=== PATIENT | female | born 1950 | race Caucasian/White ===

== ENCOUNTER 2018-09-27 17:24 | Emergency (ER) | payer MEDICARE, OTHER ==
[2018-09-27] MEDS ORDERED: Sodium Chloride 0.9% 10 ML Syringe FLUSH PRN (17:55)
[2018-09-27] MEDS ORDERED: Ondansetron 4 MG/2 ML SDV IVPUSH ONE (17:56)
[2018-09-27] MEDS ORDERED: Metoprolol Tartrate 5 MG/5 ML SDV IVPUSH ONE (17:56)
[2018-09-27] MEDS: hydrOXYzine HCl 50 MG/ML SDV IM ONE (18:22)
[2018-09-27] MEDS: Ketorolac 30 MG/ML SDV IM ONE (18:22)
[2018-09-27] MEDS: Ondansetron 4 MG Tab.DIS ONE (18:23)
[2018-09-27 18:38] LABS: CHLORIDE,CL 96 mmol/L (98-107); SODIUM,NA 135 mmol/L (136-145)
[2018-09-27 18:44] LABS: ANION GAP 16.2 mmol/L (10-20)
--- NOTE | 2018-09-27 19:01 | EDM.PDOC ---
ED HPI GENERAL MEDICAL PROBLEM - General Chief Complaint: Headache Stated Complaint: EYE Time Seen by Provider: 09/27/18 17:30 Source of Information: Reports: Patient History Limitations: Reports: No Limitations - History of Present Illness INITIAL COMMENTS - FREE TEXT/NARRATIVE: Patient comes into the emergency department with complaints of hypertension, blood in the lower eye, and headache. Patient states she noticed her left eye had blood formation on the lower aspect around 3pm today. She did not remember injuring or harming that eye. At around the same time she started noticing that she began to have a headache. The headache has not increased in intensity however is maintaining the same. Shortly after she began to have a headache she noticed that her pressure was elevated when she checked it. Patient did stay at home for approximately 3 hours with a headache prior to coming in. Patient describes the headache as a throbbing sensation is having a history of headaches and states this does feel similar to all the other headaches that she has had in the past. She also states that her headaches normally are accompanied with high blood pressure. Her left eye she does not remember injuring herself or having any trauma she does state that she may have wiped her eye with her hand but does not remember injuring it. Patient denies having any changes in vision, blurriness, seeing floaters, having double vision, or blindness. Patient also states that the headache is self-limiting and isolated but does cause some nausea. Pt denies and chest pain, SOB, GI upset, or edema. Onset: Gradual Location: Reports: Head Quality: Reports: Ache, Throbbing Improves with: Reports: None Worsens with: Reports: None Associated Symptoms: Reports: No Other Symptoms Headache Pain Score (Numeric/FACES): 7 - Related Data Allergies Allergy/AdvReac Type Severity Reaction Status Date / Time cefuroxime axetil Allergy Cannot Verified 09/27/18 18:37 [From Ceftin] Remember codeine Allergy Nausea Verified 09/27/18 18:37 diazepam [From Valium] Allergy Cannot Verified 09/27/18 18:37 Remember hydrocodone Allergy Cannot Verified 09/27/18 18:37 Remember propoxyphene HCl Allergy Nausea Verified 09/27/18 18:37 [From Darvon] Sulfa (Sulfonamide Allergy Cannot Verified 09/27/18 18:37 Antibiotics) Remember Home Meds: Home Meds Losartan [Cozaar] 100 tab PO DAILY 03/17/15 [History] Metoprolol Tartrate 100 mg PO BID 10/09/14 [History] atorvaSTATin [Lipitor] 10 tab PO DAILY 10/09/14 [History] hydroCHLOROthiazide [Hydrochlorothiazide] 25 mg PO DAILY PRN 10/09/14 [History] ALPRAZolam [Xanax] 0.25 mg PO BID PRN 08/05/15 [History] Cyclobenzaprine [Flexeril] 10 mg PO TID PRN 08/05/15 [History] Dicyclomine HCl [Bentyl] 20 mg PO QID PRN 08/05/15 [History] Hydroxychloroquine Sulfate [Plaquenil] 200 mg PO BEDTIME 08/05/15 [History] Levothyroxine [Synthroid] 88 mcg PO ACBREAKFAST 08/05/15 [History] Lysine 500 mg PO BEDTIME 08/05/15 [History] Magnesium Oxide 400 mg PO BEDTIME 08/05/15 [History] Non-Formulary Medication [NF Drug] 1 each .ROUTE ASDIRECTED 08/05/15 [History] Non-Formulary Medication [NF Drug] 1 each TOP ASDIRECTED 08/05/15 [History] Polyethylene Glycol 3350 [MiraLAX] 1 packet PO DAILY PRN 08/05/15 [History] Warfarin [Coumadin] 5 mg PO ASDIRECTED 08/05/15 [History] Zolpidem [Ambien] 10 mg PO BEDTIME PRN 08/05/15 [History] traMADol [Ultram] 50 - 100 mg PO Q6H PRN 08/05/15 [History] Past Medical History HEENT History: Reports: Allergic Rhinitis, Cataract, Other (See Below) Other HEENT History: presbyopia. hypermetropia Cardiovascular History: Reports: Afib, Aneurysm, High Cholesterol, Hypertension , Other (See Below) Other Cardiovascular History: mitral valve disorders Gastrointestinal History: Reports: Diverticulosis, GERD, Irritable Bowel Syndrome Musculoskeletal History: Reports: Other (See Below) Other Musculoskeletal History: lumbar disc disease with radiculopathy Neurological History: Reports: Migraines Psychiatric History: Reports: Anxiety, Other (See Below) Other Psychiatric History: insomnia Endocrine/Metabolic History: Reports: Hypothyroidism Immunologic History: Reports: Other (See Below) Other Immunologic History: discoid lupus - Past Surgical History Female Surgical History: Reports: Hysterectomy, Other (See Below) Neurological Surgical History: Reports: Discectomy, Laminectomy Musculoskeletal Surgical History: Reports: Other (See Below) Social & Family History - Family History HEENT: Reports: Glaucoma Cardiac: Reports: Afib, Aneurysm, Heart Failure, High Cholesterol, Hypertension GI: Reports: Diverticulitis Musculoskeletal: Reports: Osteoporosis Neurological: Reports: Alzheimers Disease, Migraines Psychiatric: Reports: Anxiety Endocrine/Metabolic: Reports: Hypothyroidism, Osteoporosis Oncologic: Reports: Breast - Tobacco Use Smoking Status *Q: Never Smoker ED ROS GENERAL - Review of Systems Review Of Systems: See Below Constitutional: Reports: No Symptoms HEENT: Reports: No Symptoms Respiratory: Reports: No Symptoms Cardiovascular: Reports: No Symptoms Endocrine: Reports: No Symptoms GI/Abdominal: Reports: No Symptoms Musculoskeletal: Reports: No Symptoms Skin: Reports: No Symptoms Neurological: Reports: No Symptoms Psychiatric: Reports: No Symptoms ED EXAM, GENERAL - Physical Exam Exam: See Below Exam Limited By: No Limitations General Appearance: Alert, WD/WN, No Apparent Distress Eye Exam: Left Eye: Other (blood formation noted lower aspect of eye. sclera injury noted. ), Bilateral Eye: EOMI, PERRL Throat/Mouth: Normal Inspection Head: Atraumatic, Normocephalic Respiratory/Chest: No Respiratory Distress, Lungs Clear, Normal Breath Sounds, No Accessory Muscle Use, Chest Non-Tender Cardiovascular: Normal Peripheral Pulses, Regular Rate, Rhythm, No Edema, No Murmur Back Exam: Normal Inspection, Full Range of Motion Extremities: Normal Inspection, Normal Range of Motion, Non-Tender, No Pedal Edema, Normal Capillary Refill Neurological: Alert, Oriented, Normal Gait Psychiatric: Normal Affect, Normal Mood Skin Exam: Warm, Dry, Intact, Normal Color, No Rash EKG INTERPRETATION Rhythm: NSR Course - Vital Signs Last Recorded V/S: Last Vital Signs Temp 36.3 C 09/27/18 18:37 Pulse 67 09/27/18 19:06 Resp 16 09/27/18 19:09 BP 157/95 H 09/27/18 19:09 Pulse Ox 97 09/27/18 19:06 - Orders/Labs/Meds Orders: Active Orders 24 hr Category Date Time Status Cardiac Monitoring [RC] . DIRECTED Care 09/27/18 17:55 Active EKG Documentation Completion [RC] STAT Care 09/27/18 17:55 Active Peripheral IV Insertion Adult [OM.PC] Stat Oth 09/27/18 17:55 Ordered Labs: Laboratory Tests 09/27/18 09/27/18 09/27/18 Range/Units 18:00 18:00 18:00 WBC 7.2 (4.0-10.0) x10^3/uL RBC 4.64 (4.00-5.50) x10^6/uL Hgb 14.4 (12.0-16.0) g/dL Hct 41.4 (33.0-47.0) % MCV 89.2 (78.0-93.0) fL MCH 31.0 (26.0-32.0) pg MCHC 34.8 (32.0-36.0) g/dL RDW Coeff of Yasmeen 12.3 (10.0-15.0) % Plt Count 260 (130-400) x10^3/uL Neut % (Auto) 47.0 L (50.0-80.0) % Lymph % (Auto) 39.4 (25.0-50.0) % [place] % (Auto) 12.2 H (2.0-11.0) % Eos % (Auto) 1.0 (0.0-4.0) % Baso % (Auto) 0.4 (0.2-1.2) % PT 22.9 H (9.6-11.4) SEC INR 2.2 (2.0-3.5) Sodium 135 L (136-145) mmol/L Potassium 3.2 L (3.5-5.1) mmol/L Chloride 96 L (98-107) mmol/L Carbon Dioxide 26 (21-32) mmol/L Anion Gap 16.2 (10-20) mmol/L BUN 14 (7-18) mg/dL Creatinine 0.8 (0.55-1.02) mg/dL Est Cr Clr Drug Dosing TNP Estimated GFR (MDRD) > 60 Glucose 103 (74-106) mg/dL Calcium 9.4 (8.5-10.1) mg/dL Corrected Calcium 9.40 (8.5-10.1) mg/dL Total Bilirubin 0.4 (0.2-1.0) mg/dL AST 22 (15-37) U/L ALT 23 (14-59) U/L Alkaline Phosphatase 72 (46-116) U/L Creatine Kinase 76 (26-192) U/L Troponin I < 0.017 (<=0.056) ng/mL NT-Pro-B Natriuret Pep 178 H (<=125) pg/mL Total Protein 7.2 (6.4-8.2) g/dL Albumin 4.0 (3.4-5.0) g/dL Globulin 3.2 Albumin/Globulin Ratio 1.25 Meds: Medications Discontinued Medications Generic Name Dose Route Start Last Admin Trade Name Freq PRN Reason Stop Dose Admin Hydroxyzine HCl 50 mg 09/27/18 17:57 09/27/18 18:22 Vistaril IM 09/27/18 17:58 50 mg ONETIME ONE Administration Ketorolac Tromethamine 30 mg 09/27/18 18:01 09/27/18 18:22 Toradol IM 09/27/18 18:02 30 mg ONETIME ONE Administration Metoprolol Tartrate 5 mg 09/27/18 17:56 Lopressor IVPUSH 09/27/18 17:57 ONETIME ONE Ondansetron HCl 4 mg 09/27/18 17:56 Zofran IVPUSH 09/27/18 17:57 ONETIME ONE Ondansetron HCl Confirm 09/27/18 18:21 09/27/18 18:23 Zofran Odt Administered 09/27/18 18:22 4 mg Dose Administration 4 mg .ROUTE .STK-MED ONE Sodium Chloride 10 ml 09/27/18 17:55 Saline Flush FLUSH ASDIRECTED PRN Keep Vein Open Departure - Departure Time of Disposition: 19:05 Disposition: Home, Self-Care 01 Condition: Good Clinical Impression: Hypertension Qualifiers: Hypertension type: essential hypertension Qualified Code(s): I10 - Essential ( primary) hypertension - Discharge Information *PRESCRIPTION DRUG MONITORING PROGRAM REVIEWED*: Not Applicable *COPY OF PRESCRIPTION DRUG MONITORING REPORT IN PATIENT PETE: Not Applicable Instructions: Hypertension, [id number] Referrals: Jeane Gtz MD [Primary Care Provider] - Forms: ED Department Discharge Additional Instructions: 1. rest 2. increase your water intake 3. Follow up with your PCP 4. Take a extra 1/2 tab of metoprolol tonight 5. Call with any questions or concerns - My Orders Last 24 Hours: My Active Orders 09/27/18 17:55 Cardiac Monitoring [RC] . DIRECTED EKG Documentation Completion [RC] STAT Peripheral IV Insertion Adult [OM.PC] Stat - Assessment/Plan Last 24 Hours: My Active Orders 09/27/18 17:55 Cardiac Monitoring [RC] . DIRECTED EKG Documentation Completion [RC] STAT Peripheral IV Insertion Adult [OM.PC] Stat Assessment:: 1. no traumatic eye injury 2. headache 3. Hypertension Plan: 1. Multiple IV's were attempted with no success. 2. Oral agents given to reduce the headache and nausea. Relief noted within 20 mins of administration 3. Pt advised to take an extra 1/2 tab of her metoprolol tonight 4. Did offer to observe the pt for rebound headache in the hospital however she declined. 5. Education regarding increase water intake, follow up, activity and diet was provided. 6. Left eye did not continue to spreading of bleeding while in the area. No changes in vision acuity noted and no changes prior to discharge. 7. Pt also encouraged to return to the ER immediate if symptoms continue or return 8. All questions and concerns addressed prior to discharge
[2018-09-27 19:49] VITALS: BP 157/95
== END 2018-09-27 19:12 | disposition home or self-care (01) ==
LOC: VM.ED 17:24
DX: I10 Essential (primary) hypertension (principal); R51 Headache; R58 Hemorrhage, not elsewhere classified; I48.91 Unspecified atrial fibrillation; E03.9 Hypothyroidism, unspecified; F41.9 Anxiety disorder, unspecified; Z90.710 Acquired absence of both cervix and uterus; Z88.1 Allergy status to other antibiotic agents; Z88.2 Allergy status to sulfonamides; Z88.5 Allergy status to narcotic agent; Z79.899 Other long term (current) drug therapy; Z79.01 Long term (current) use of anticoagulants
CPT/HCPCS: 36415; 80053; 82550; 83880; 84484; 85025; 85610; 93005; 93010; 96372; 99284-25; 99284-GF; A9270-GY; J1885; J3410

== ENCOUNTER 2023-06-24 18:56 | Observation (INO) | payer MEDICARE, OTHER ==
[2023-06-24] MEDS ORDERED: Desmopressin 20 MCG in Sodium Chloride 0.9% 100 ML IV ONE (20:54)
[2023-06-24] MEDS ORDERED: Ondansetron 4 MG Tab.DIS PO PRN (21:13)
[2023-06-24] MEDS ORDERED: Sodium Chloride 0.9% 10 ML Syringe FLUSH PRN (21:13)
[2023-06-24] MEDS ORDERED: Ondansetron 4 MG/2 ML SDV IV PRN (21:13)
[2023-06-24] MEDS ORDERED: Acetaminophen 325 MG Tab PO PRN (21:13)
[2023-06-25 09:57] VITALS: BP 158/83; PULSE 77
== END 2023-06-25 09:55 | disposition home or self-care (01) ==
LOC: VM.ED 18:56 → VM.MS 20:59
PROVIDERS: ADMIT Physician Assistant Medical; ATTEND Physician Assistant Medical
DX: I62.00 Nontraumatic subdural hemorrhage, unspecified (principal); G20.A1 Parkinson's disease without dyskinesia, without mention of fluctuations; I48.91 Unspecified atrial fibrillation; E78.00 Pure hypercholesterolemia, unspecified; I10 Essential (primary) hypertension; K21.9 Gastro-esophageal reflux disease without esophagitis; F41.9 Anxiety disorder, unspecified; G43.909 Migraine, unspecified, not intractable, without status migrainosus; E03.9 Hypothyroidism, unspecified; I11.0 Hypertensive heart disease with heart failure; I50.9 Heart failure, unspecified; F17.299 Nicotine dependence, other tobacco product, with unspecified nicotine-induced disorders; Z98.890 Other specified postprocedural states; Z79.82 Long term (current) use of aspirin; Z79.01 Long term (current) use of anticoagulants; Z79.899 Other long term (current) drug therapy; Z79.890 Hormone replacement therapy; Z88.1 Allergy status to other antibiotic agents; Z88.2 Allergy status to sulfonamides; Z88.5 Allergy status to narcotic agent; Z88.8 Allergy status to other drugs, medicaments and biological substances
CPT/HCPCS: 70450; 72125; 96365; 99223; 99239; 99284-25; A9270-GY; G0378; J2597; J3490

== ENCOUNTER 2023-07-15 12:52 | Emergency (ER) | payer MEDICARE, OTHER ==
[2023-07-15] MEDS ORDERED: Labetalol 20 MG/4 ML Syringe IVPUSH ONE (12:57)
[2023-07-15 13:21] LABS: BASOPHILS ABSOLUTE AUTO 0.1 x10^3/uL (0.0-0.2); BASOPHILS PERCENT AUTO 1.3 % (0.2-1.2); EOSINOPHILS ABSOLUTE AUTO 0.1 x10^3/uL (0.0-0.5); EOSINOPHILS PERCENT AUTO 1.5 % (0.0-4.0); HEMATOCRIT 43.8 % (33.0-47.0); IMMATURE GRAN ABSOLUTE AUTO 0.01 x10^3/uL (0.00-0.07); LYMPHOCYTES ABSOLUTE AUTO 2.1 x10^3/uL (1.0-4.8); LYMPHOCYTES PERCENT AUTO 40.2 % (25.0-50.0); MEAN CORPUSCULAR HEMOGLOBIN 31.4 pg (26.0-32.0); MEAN CORPUSCULAR HGB CONC 34.2 g/dL (32.0-36.0); MEAN CORPUSCULAR VOLUME 91.8 fL (78.0-93.0); MONOCYTES ABSOLUTE AUTO 0.6 x10^3/uL (0.0-0.8); MONOCYTES PERCENT AUTO 11.3 % (2.0-11.0); NEUTROPHILS ABSOLUTE AUTO 2.4 x10^3/uL (1.8-7.7); NEUTROPHILS PERCENT AUTO 45.5 % (50.0-80.0); PLATELET COUNT,PLT 245 x10^3/uL (130-400); RED BLOOD CELL COUNT 4.77 x10^6/uL (4.00-5.50); WHITE BLOOD CELL COUNT,WBC 5.3 x10^3/uL (4.0-10.0)
[2023-07-15 13:40] LABS: PROTHROMBIN TIME 10.6 SEC (9.5-12.2); PTT,PARTIAL THROMBOPLSTIN TIME 24.9 SEC (23.6-33.6)
[2023-07-15 13:45] LABS: ALANINE AMINOTRANSFERASE,ALT 27 U/L (14-59); ALKALINE PHOSPHATASE 84 U/L (46-116); ANION GAP 16.8 mmol/L (5-15); ASPARTATE AMNIOTRANSFERASE,AST 22 U/L (15-37); BILIRUBIN TOTAL 0.4 mg/dL (0.2-1.0); BLOOD UREA NITROGEN,BUN 11 mg/dL (7-18); C-REACTIVE PROTEIN < 0.50 mg/dL (<=0.50); CALCIUM 9.3 mg/dL (8.5-10.1); CARBON DIOXIDE,CO2 27 mmol/L (21-32); CHLORIDE,CL 104 mmol/L (98-107); CREATININE 0.9 mg/dL (0.55-1.02); ESTIMATED GFR 67 mL/min (>=60); GLUCOSE RANDOM 115 mg/dL (70-99); MAGNESIUM 1.8 mg/dL (1.8-2.4); POTASSIUM,K 3.8 mmol/L (3.5-5.1); SODIUM,NA 144 mmol/L (136-145)
[2023-07-15 18:28] VITALS: BP 134/77; PULSE 68
== END 2023-07-15 14:50 | disposition home or self-care (01) ==
LOC: VM.ED 12:52
DX: I10 Essential (primary) hypertension (principal); E78.00 Pure hypercholesterolemia, unspecified; I48.91 Unspecified atrial fibrillation; K21.9 Gastro-esophageal reflux disease without esophagitis; E03.9 Hypothyroidism, unspecified; Z90.49 Acquired absence of other specified parts of digestive tract; Z90.710 Acquired absence of both cervix and uterus; Z79.899 Other long term (current) drug therapy; Z88.5 Allergy status to narcotic agent; Z88.8 Allergy status to other drugs, medicaments and biological substances; Z88.2 Allergy status to sulfonamides; Z88.1 Allergy status to other antibiotic agents
CPT/HCPCS: 36415; 70450; 80053; 83735; 84484; 85025; 85610; 85730; 86140; 93005; 93010; 96374; 99284; 99284-25; J1920

== ENCOUNTER 2023-07-16 16:39 | Emergency (ER) | payer MEDICARE, OTHER ==
[2023-07-16] MEDS ORDERED: Ketorolac 30 MG/ML SDV IM ONE (16:55)
[2023-07-16] MEDS ORDERED: Prochlorperazine 10 MG/2 ML SDV IM ONE (16:56)
[2023-07-16] MEDS ORDERED: Acetaminophen 500 MG Tab PO ONE (17:45)
[2023-07-16 17:57] VITALS: BP 151/79; PULSE 64
== END 2023-07-16 17:40 | disposition home or self-care (01) ==
LOC: VM.ED 16:39
DX: G43.909 Migraine, unspecified, not intractable, without status migrainosus (principal); I10 Essential (primary) hypertension; I48.91 Unspecified atrial fibrillation; K21.9 Gastro-esophageal reflux disease without esophagitis; M19.90 Unspecified osteoarthritis, unspecified site; Z88.8 Allergy status to other drugs, medicaments and biological substances; Z88.5 Allergy status to narcotic agent; Z88.1 Allergy status to other antibiotic agents; Z88.2 Allergy status to sulfonamides; Z79.899 Other long term (current) drug therapy
CPT/HCPCS: 96372; 99284; J0780; J1885

== ENCOUNTER 2025-01-16 20:03 | Emergency (ER) | payer MEDICARE, OTHER ==
[2025-01-16 20:35] VITALS: BP 158/91; PULSE 87
[2025-01-16] MEDS ORDERED: Lidocaine 1% with EPINEPHrine 1:100,000 20 ML MDV INFILT PRN (20:47)
== END 2025-01-16 21:13 | disposition home or self-care (01) ==
LOC: VM.ED 20:03
DX: S01.01XA Laceration without foreign body of scalp, initial encounter (principal); I10 Essential (primary) hypertension; E78.00 Pure hypercholesterolemia, unspecified; K21.9 Gastro-esophageal reflux disease without esophagitis; E03.9 Hypothyroidism, unspecified; Z90.49 Acquired absence of other specified parts of digestive tract; Z90.710 Acquired absence of both cervix and uterus; Z79.899 Other long term (current) drug therapy; Z79.890 Hormone replacement therapy; Z88.5 Allergy status to narcotic agent; Z88.8 Allergy status to other drugs, medicaments and biological substances; Z88.2 Allergy status to sulfonamides; W19.XXXA Unspecified fall, initial encounter
CPT/HCPCS: 12001; 70450; 99283

== ENCOUNTER 2025-07-06 17:12 | Emergency (ER) | payer MEDICARE, OTHER ==
[2025-07-06] MEDS: Iopamidol 755 Mg/ML 100 ML Bottle IVPUSH ONE (18:16)
[2025-07-06 19:19] VITALS: BP 160/88; PULSE 82
== END 2025-07-06 18:53 | disposition home or self-care (01) ==
LOC: VM.ED 17:12
DX: R93.1 Abnormal findings on diagnostic imaging of heart and coronary circulation (principal); I48.91 Unspecified atrial fibrillation; E78.00 Pure hypercholesterolemia, unspecified; I10 Essential (primary) hypertension; E03.9 Hypothyroidism, unspecified; Z88.1 Allergy status to other antibiotic agents; Z88.8 Allergy status to other drugs, medicaments and biological substances; Z88.2 Allergy status to sulfonamides; Z79.899 Other long term (current) drug therapy; Z88.5 Allergy status to narcotic agent; Z79.890 Hormone replacement therapy
CPT/HCPCS: 99283; Q9967; 71275